=== PATIENT | male | born 1975 | race Hispanic/Latino ===

== ENCOUNTER 2018-02-06 10:27 | Emergency (ER) | payer BC ==
[2018-02-06] MEDS ORDERED: TETANUS/DIPHTHERIA TOXOID [ADULT] 0.5 ML VIAL IM ONE (10:44)
[2018-02-06] MEDS ORDERED: HYDROCODONE/ACETAMINOPHEN 10/325 MG TAB ONE (10:44)
[2018-04-12] MEDS ORDERED: CLOB59SP3 TP (16:44)
== END 2018-02-06 11:58 | disposition home or self-care (01) ==
LOC: EDH 10:27
DX: S43.084A Other dislocation of right shoulder joint, initial encounter (principal); Z87.891 Personal history of nicotine dependence; V19.9XXA Pedal cyclist (driver) (passenger) injured in unspecified traffic accident, initial encounter; Y93.89 Activity, other specified; Y92.89 Other specified places as the place of occurrence of the external cause; Y99.8 Other external cause status
CPT/HCPCS: 73030; 90471; 90714

== ENCOUNTER → 2018-04-02 | Outpatient (CLI) | payer BC ==
[~2018-04-02] MED LIST: CEPH500B PO; CLOB59SP3 TP; HYDR-309 PO; NAPR-1023 PO
== END | disposition home or self-care (01) ==
LOC: RAH 10:33
PROVIDERS: ATTEND Orthopaedic Surgery
DX: S43.101A Unspecified dislocation of right acromioclavicular joint, initial encounter (principal); X58.XXXA Exposure to other specified factors, initial encounter; Y93.89 Activity, other specified; Y92.89 Other specified places as the place of occurrence of the external cause; Y99.8 Other external cause status
CPT/HCPCS: 73221

== ENCOUNTER 2021-07-16 13:12 | Emergency (ER) | payer BC, OTHER ==
[~2021-07-16] VITALS: Ht 165.1 cm; Wt 111.1 kg
[~2021-07-16 13:12] MED LIST changes: -HYDR-309 PO; +HYDR-4457 PO
[2021-07-16 13:13] VITALS: BP 143/92
[2021-07-16] MEDS ORDERED: CEPH500B PO (15:25)
[2021-07-16] MEDS ORDERED: ACETAMINOPHEN 500 MG TABLET PO SCH (15:30)
[2021-07-16] MEDS ORDERED: TETANUS/DIPHTHERIA TOXOID [ADULT] 0.5 ML VIAL IM ONE ×2 (16:14→16:30)
== END 2021-07-16 16:27 | disposition home or self-care (01) ==
LOC: EDH 13:12
DX: S71.112A Laceration without foreign body, left thigh, initial encounter (principal); E66.9 Obesity, unspecified; Z79.1 Long term (current) use of non-steroidal anti-inflammatories (NSAID); Z88.0 Allergy status to penicillin; W26.8XXA Contact with other sharp object(s), not elsewhere classified, initial encounter; Y93.89 Activity, other specified; Y92.89 Other specified places as the place of occurrence of the external cause; Y99.8 Other external cause status
CPT/HCPCS: 12001; 73551; 90471; 90714